=== PATIENT | male | born 1955 | race Caucasian/White ===

== ENCOUNTER 2017-02-06 10:27 | Emergency (ER) | payer OTHER ==
[~2017-02-06] VITALS: Ht 172.7 cm; Wt 83.6 kg
[2017-02-06 10:31] VITALS: BP 152/67; PULSE 65; RESP 14; O2SAT 97
--- NOTE | 2017-02-06 11:02 | ED.REPORT ---
HPI-Extremity Problem Upper Date of Service February 06, 2017 ED Provider: Cheyenne Islas History of Present Illness: cut right 4th finger with a knife while doing dishes. happened around 1015 today. last tdap 2 weeks ago. [facility] at [facility] in [place] is primary care. normally healthy. right hand dominant. denies pain Nursing Notes Stated Complaint: CUT TO RIGHT RING FINGER Chief Complaint: Extremity Trauma Allergies: Coded Allergies: No Known Allergies (Unverified Allergy, Unknown, 02/06/17) General Time Seen by MD: 10:53 Chief Complaint Finger injury right 4 Hx Obtained From: Patient Onset Occurred: 1 - 4 hours ago Symptom Duration: Since onset Past Medical History Past Medical History Emphysema Past Surgical History Reports: Appendectomy Reports: Hip replacement Smoking History Former Smoker (quit 2 days ago 02/06/2017) Social History Alcohol Use: Denies alcohol use Drug Use: THC Other Social History: Occupation no work or school 02/06/2017 Ambulatory Status Independent Review of Systems Basic Review of Systems Eyes: Vision NL, No discharge : No dysuria, No frequency Psychiatric: Normal thought content Physical Exam Initial Vital Signs Vital Signs (First) Date Time Temp Pulse Resp B/P Pulse Ox O2 Delivery O2 Flow Rate FiO2 02/06/17 10:31 36.0 65 14 152/67 97 Room Air Initial VS: Reviewed, Vital signs normal General/Constitutional: Well-developed, Well-nourished Head / Eyes: Atraumatic, Normocephalic, PERRL ENT: Mucous membranes moist, Conjunctiva normal, No scleral icterus Neck: Supple, Non-tender, Full range of motion Respiratory: Breath sounds normal, Clear to auscultation, No respiratory distress Cardiovascular: Regular rate & rhythm, Heart sounds normal, Intact distal pulses Abdomen / GI: Soft, Non-tender, No guarding, No rebound, No distention Back: No CVA tenderness Lymphatic: No lymphadenopathy Lower Extremities: Vascular intact, Neuro intact, No swelling, No tenderness Skin: Warm, Dry, No cyanosis Neurologic: Alert, Oriented, Nonfocal Psychiatric: Mood/affect normal, Behavior normal, Normal thought content General/Constitutional: Awake, Alert, No acute distress Respiratory / Chest: Atraumatic, Breath sounds NL, Breath sounds = bilat, No respiratory distress Cardiovascular: Heart rate NL, Regular rhythm, Heart sounds NL right 4th finger has 1 cm laceration on finger pad. No active bleeding. Has full range of motion. cap refill less than 2 sec. sensation intact distally Procedures Laceration Management Time: 11:10 Procedure Performed by: Allied health pract Consent / Setup / Site Prep: Informed consent provided, Consent from patient , Time-out performed, Hand hygiene observed, Stand sterile technique Location of Wound: right 4th finger pad Wound Length: 1 cm Local Anesthesia: Lidocaine 1%, 4cc, 27g needle Digital Block: Yes Digit Involved: Ring finger right Wound Preparation: Normal saline Debridement: None Irrigation: 200 cc Repair Skin: ___ O (5), Nylon # Sutures - Skin: 3 Closure Layers: 1 Suture Technique: Simple Post-Procedure / Complications: Antibiotic oint applied, Dressing applied, No complications, Condition improved, Tolerated procedure well, Patient stable Re-Eval/Medical Decision Med Decision/Clinical Course 62 year old male presents to the ER for repair of finger laceration which occured while washing a knife just prior to arrival. Patient denies pain, is up to date on immunizations. Wound is washed and repaired. No sign of fracture or compartment syndrome. Discharge & Departure Impression: Primary Impression: Finger laceration Encounter type: initial encounter Qualified Code: S61.219A - Laceration without foreign body of unspecified finger without damage to nail, initial encounter Disposition: Home Patient Instructions: Finger Laceration (ED) Additional Instructions: The laceration has been repaired with 3 sutures. Keep dry for 24 hours. Apply bacitracin and bandaid daily. Please have your provider look at the wound on Tuesday. Sutures usually stay in for 7 to 10 days but they may be ready to remove on Tuesday. If not, return in 7 to 10 days for suture removal. I am sorry this happened. Referrals: OTHER,PHYSICIAN (PCP) (Family) EDSupervising Provider for APC: Marshall Charlton MD copies to: OTHER,PHYSICIAN Cheyenne Islas February 06, 2017 11:02
[2017-02-06] MEDS ORDERED: Lidocaine 1% 50 mL Inj NERVEBLOCK ONE (11:05)
== END 2017-02-06 11:27 | disposition home or self-care (01) ==
LOC: SED 10:27
DX: S61.214A Laceration without foreign body of right ring finger without damage to nail, initial encounter (principal); W26.0XXA Contact with knife, initial encounter; Y93.G1 Activity, food preparation and clean up; Y92.9 Unspecified place or not applicable; Y99.8 Other external cause status; Z87.891 Personal history of nicotine dependence